=== PATIENT | female | born 1935 | race Caucasian/White ===

== ENCOUNTER 2017-05-17 08:24 | Observation (INO) | payer MEDICARE ==
[~2017-05-17] VITALS: Ht 162.6 cm; Wt 62.3 kg
[2017-05-17 08:21] VITALS: BP 176/83; PULSE 76; RESP 18; O2SAT 97
[~2017-05-17 08:24] MED LIST: BRIM5DRO10 AFFECT_EYE; LAMO25TA2 PO
--- NOTE | 2017-05-17 08:26 | ED.REPORT ---
HPI-Trauma Minor / Fall Date of Service May 17, 2017 ED Provider: 81-year-old female past medical history of neurological deterioration of the right leg presents today for fall. She states that she was at home trying to open a window when she lost her balance and fell back onto her buttocks. She states that she fell into a sitting position, and since that time she describes 8/10 dull pain in her buttocks and low back which radiates up spinal column. Laying in bed alleviates his pain, sitting up aggravates the pain. She states that she has been able to walk since that time, and denies any changes in bowel or bladder function. She also denies headache, shortness of breath, nausea, vomiting, chest pain, pain with urination. She denies pain in her arms, legs or hips. She is not on any blood thinners and does not take any pain medication at home. She has an appointment today scheduled with Dr. Garibay for evaluation of her recent neurological deterioration of the right leg. Nursing Notes Stated Complaint: GROUND LEVEL FALL Chief Complaint: Multiple Trauma/Fall Nursing Notes Reviewed: Yes Allergies: Coded Allergies: Penicillins (Verified Allergy, Severe, RASH, 10/24/16) Scheduled Brimonidine Tartrate (Alphagan P) 5 Ml Drops 1-2 DROP AFFECT_EYE BID Lamotrigine (Lamictal) 25 Mg Tablet 50 MG PO BID General Time Seen by MD: 08:26 Chief Complaint Fall Hx Obtained From: Patient Onset Occurred: Just prior to arrival Symptom Duration: Since onset Caused by: Accidental Severity: Current: Pain level 8 out of 10 Risk Factors IC Bleed Risk Stratification Risk factors reviewed Head CT Imaging RF Statements: Risk factors reviewed Spine Injury Risk Stratificati Risk factors reviewed Bleeding Risk Stratification Risk factors reviewed Past Medical History Past Medical History Notes: PCP: Dr. Hernandes Neurologist: Dr. Irizarry Past Medical History Reports: Hypertension Past Surgical History denies Family History family history of CVA Smoking History Never Smoker Social History Alcohol Use: Denies alcohol use Drug Use: Denies drug use Ambulatory Status Independent Review of Systems Complete sys rev & neg: except as marked. Physical Exam Physical Exam Notes: 4/5 motor weakness on the right lower leg (hip flexion/extension, lower leg flexion/extension, foot dorsiflexion/flexion) 5/5 motor strength in all other muscles tested Patient has a slurring of her speech, and difficulty swallowing Initial Vital Signs Vital Signs (First) Date Time Temp Pulse Resp B/P Pulse Ox O2 Delivery O2 Flow Rate FiO2 05/17/17 08:21 36.7 76 18 176/83 97 Room Air Initial VS: Reviewed, Vital signs abnormal (elevated blood pressure) Head / Eyes: Atraumatic, Normocephalic, PERRL ENT: Mucous membranes moist, Conjunctiva normal, No scleral icterus Respiratory: Breath sounds normal, Clear to auscultation, No respiratory distress Cardiovascular: Regular rate & rhythm, Heart sounds normal, Intact distal pulses Abdomen / GI: Soft, Non-tender, No guarding, No rebound, No distention Extremities: Vascular intact, No swelling, No tenderness Skin: Warm, Dry, No cyanosis Neurologic: Alert, Oriented, Nonfocal Psychiatric: Mood/affect normal, Behavior normal, Normal thought content Right Hip: Negative: Ecchymosis present, Erythema present, Swelling present... , Tenderness present... Left Hip: Negative: Ecchymosis present, Erythema present, Swelling present..., Tenderness present..., Warmth present Right Thigh: Negative: Ecchymosis present, Erythema present, Swelling present..., Tenderness present..., Warmth present Right Knee: Negative: Ecchymosis present, Erythema present, Swelling present... , Tenderness present... Right Leg / Calf: Positive: Swelling present... (very mild swelling of the calf as compared to the left), Negative: Ecchymosis present, Tenderness present... Neurologic: Oriented X3, No sensory deficits, CN II - XII intact, Cerebellar NL , Memory NL Speech: Positive: Slow, Slurred, Negative: Expressive aphasia, Garbled, Receptive aphasia, Stuttering Focal Weakness: Positive: Lower extremity R Gait Abnormality: Positive: Walks with assistance Interpretation & Diagnostics Lab Results Interpretation Result Diagram: 05/17/17 1025 Test 05/17/17 08:48 05/17/17 10:25 Urine Color Yellow (YELLOW) Urine Appearance Hazy (CLEAR,HAZY) Urine pH 6.5 (5.0-8.0) Urine Specific Boss 1.010 (1.003-1.035) Urine Protein Negativemg/dL (NEG,TRACE) Urine Glucose (UA) Negativemg/dL (NEGATIVE) Urine Ketones Negativemg/dL (NEGATIVE) Urine Occult Blood Negative (NEGATIVE) Urine Nitrite Negative (NEGATIVE) Urine Bilirubin Negative (NEGATIVE) Urine Urobilinogen Normalmg/dL (NORMAL) Urine Leukocyte Esterase Negative (NEGATIVE) Urine RBC 0-2/hpf (0-2) Urine WBC 0-5/hpf (0-5) Urine Epithelial Cells Occasional/hpf (NONE-MOD) Urine Crystals None seen (NONE SEEN) Urine Bacteria None/hpf (NONE-FEW) Urine Hyaline Casts None/lpf (NONE) Urine Granular Casts None seen (NONE SEEN) Urine Waxy Casts None seen (NONE SEEN) Urine Red Blood Cell Casts None seen (NONE SEEN) Urine White Blood Cell Casts None seen (NONE SEEN) Urine Mucus None seen (None Seen) Urine Trichomonas None seen (NONE SEEN) Urine Yeast None (NONE SEEN) Urinalysis Comment None Urine Culture Reflexed Not indicated Hold Urine Received (Received) White Blood Count 9.4th/mm3 (3.8-10.1) Red Blood Count 3.92mil/mm3 (3.90-5.20) Hemoglobin 12.9g/dL (12.0-15.6) Hematocrit 37.6% (35.0-46.0) Mean Corpuscular Volume 95.9fL (81-100) Mean Corpuscular Hemoglobin 32.9pg (27.0-35.0) Mean Corpuscular Hemoglobin Concent 34.3% (32.0-37.0) Red Cell Distribution Width 12.6% (12.3-15.4) Platelet Count 166bil/L (150-400) Neutrophils (%) (Auto) 84.2% (40-74) Lymphocytes (%) (Auto) 9.0% (14-46) Monocytes (%) (Auto) 5.1% (4-12) Eosinophils (%) (Auto) 1.0% (0-5) Basophils (%) (Auto) 0.3% (0-3) ECG Interpretation Time: 10:17 Interpreted by: ED physician Normal ECG Interpretation: Normal ECG w/ rate of... (60), Normal rate, Normal sinus rhythm, No acute ischemic changes, Normal QRS, Normal axis, Normal intervals, No change from prior ECGs Re-Eval/Medical Decision Med Decision/Clinical Course NIF: -60 FVC: 2.2 L With the patient's global symptoms are not concerning for systemic pathology as a result of this fall. X-ray shows new L1 compression fracture. These findings were discussed with Dr. Irizarry who is scheduled to see her today. He had scheduled to see her today in order to begin the workup for myasthenia gravis. He would prefer that she be admitted to the hospital today for observation so that the appropriate workup may be done as an inpatient, as opposed to waiting for labs to come back over time. Consultation : Referral / Consult Name: Saurabh Irizarry MD Consulted With: Neurology Call Returned at: 10:00 Surfacing Machine Operator: Will see patient Note: Request to admit the patient for workup and initiation of medication for myasthenia gravis. Recommend starting Mestinon 30 mg orally. Will see patient. Counseled Regarding: Diagnosis, Lab results, Need for admission Discharge & Departure Impression: Primary Impression: Compression fracture Additional Impression: Fall Encounter type: initial encounter Qualified Code: W19.XXXA - Unspecified fall, initial encounter Disposition: ADMITTED TO HOSPITAL Discharge Condition All VS Reviewed: Yes Condition: Stable Referrals: Bhavana Hardin (PCP) Attending Statement Use the social work resources provided. Call 911, call the crisis center, or return to the ER if you feel suicidal or have other concerns. copies to: Saurabh Irizarry MD, Timothy S DO May 17, 2017 08:26 Pranav Dykes DO May 17, 2017 09:06
--- NOTE | 2017-05-17 09:48 | DRSVH ---
PROCEDURE: X-RAY LUMBAR SPINE, 2 OR 3 VIEW INDICATIONS: fall TECHNIQUE: 3 views of the lumbar spine were acquired. COMPARISON: [facility], MR, MR ANGIO RUNOFF, 11/30/2016, 8:41. FINDINGS: Bones: 5 [id number] vertebrae are present. There is moderate rightward curvature of the lumbar spine. There is moderate wedging of L1, new compared to 1.27.17. Multilevel endplate osteophytes and facet hypertrophy are present. There is mild grade 1 retrolisthesis of L3 on L4. No suspicious bony l esions. Soft tissues: Overlying bowel gas pattern is normal. No suspicious soft tissue calcifications. IMPRESSION: 1. New moderate L1 compression fracture. 2. Multilevel degenerative disc and facet disease. Dictated by: Ash Estrada M.D. on 05/17/2017 at 9:44 Approved by: Ash Estrada M.D. on 05/17/2017 at 9:46
--- NOTE | 2017-05-17 09:49 | DRSVH ---
PROCEDURE: X-RAY PELVIS, ONE OR TWO VIEWS ([id number]) INDICATIONS: fall TECHNIQUE: 1 view(s) of the pelvis acquired. COMPARISON: None. FINDINGS: Upper bony pelvis is obscured by bowel gas. Bones: No fractures or dislocations. No suspicious bony lesions. Periarticular osteophyte formatio n and joint space narrowing at the bilateral hip joints is present. Soft tissues: Visualized bowel gas pattern is normal. No suspicious soft tissue calcifications. IMPRESSION: 1. No acute fracture. No osseous lesion. If symptoms and/or clinical suspicion for pathology persist, further assessment with repeat, or advanced imaging (e.g., CT, MRI, or bone scan) may be helpful for further assessment. Dictated by: Ash Estrada M.D. on 05/17/2017 at 9:46 Approved by: Ash Estrada M.D. on 05/17/2017 at 9:47
[2017-05-17] MEDS ORDERED: 0.9% Sodium Chloride 1,000 ML IV ONE (09:58)
[2017-05-17] MEDS ORDERED: Ondansetron 2 mg/mL 2 mL Inj IV PRN (10:00)
[2017-05-17 10:37] LABS: BASOPHILS % (AUTO) 0.3 % (0-3); MONOCYTES % (AUTO) 5.1 % (4-12); Mean Corpuscular Hemoglobin 32.9 pg (27.0-35.0); Mean Corpuscular Volume 95.9 fL (81-100); NEUTROPHILS % (AUTO) 84.2 % (40-74); Platelet Count 166 bil/L (150-400)
[2017-05-17 10:44] LABS: APPEARANCE,URINE HAZY (CLEAR,HAZY); COLOR,URINE YELLOW (YELLOW); OCCULT BLOOD,URINE NEGATIVE (NEGATIVE); PH,URINE 6.5 (5.0-8.0)
[2017-05-17 10:45] LABS: UROBILINOGEN,URINE NORMAL (NORMAL)
[2017-05-17 11:04] LABS: Magnesium 2.1 mg/dL (1.6-2.6)
[2017-05-17] MEDS ORDERED: Ondansetron 2 mg/mL 2 mL Inj IVPUSH PRN ×2 (11:35→12:20)
[2017-05-17] MEDS ORDERED: Alum-Mag Hydrox-Simeth 30 mL Suspension PO PRN ×2 (11:35→12:20)
--- NOTE | 2017-05-17 11:45 | NUR ---
Arrival to [facility] Rm 1025 Pt arrived to [facility] room 1025; A&Ox3, able to VELARDE, low back pain noted with transfer from gerny to bed with sliding. VS taken, BP slightly elevated, SL, RA. Will continue to monitor with frequent rounds.
[2017-05-17 12:03] VITALS: BP 168/81; PULSE 61; RESP 17; O2SAT 99
[2017-05-17] MEDS ORDERED: Polyethylene Glycol (PEG) 17 Gm Powder PO PRN (12:20)
[2017-05-17 14:07] VITALS: PULSE 63
--- NOTE | 2017-05-17 15:01 | NUR ---
Evaluation completed. Please go to "Notes" then click on "Assessments and Notes" (bottom left corner of screen). Then select appropriate discipline tab on top of screen.
--- NOTE | 2017-05-17 15:17 | DRSVH ---
PROCEDURE: X-RAY CHEST ONE VIEW, PORTABLE ([id number]) INDICATIONS: Possible aspiration TECHNIQUE: One view of the chest was acquired. COMPARISON: 02/20/2015 FINDINGS: Surgical changes and devices: None. Lungs and pleura: No pleural effusions or pneumothorax. Lungs are clear. Mediastinum: Mediastinal contours appear normal. Heart size is normal. Aortic calcifications and to rtuosity. Bones and chest wall: No suspicious bony lesions. Overlying soft tissues appear unremarkable. IMPRESSION: No acute cardiopulmonary abnormality Dictated by: Star Wall M.D. on 05/17/2017 at 15:15 Approved by: Star Wall M.D. on 05/17/2017 at 15:15
[2017-05-17 16:25] VITALS: BP 161/78; PULSE 63; RESP 18; O2SAT 96
--- NOTE | 2017-05-17 18:10 | NUR ---
Home Meds in Pharmacy Home medications labeled and walked down to Pharmacy; PO Lamotrigine, Systan and Brimotradine gtts in Pharmacy.
--- NOTE | 2017-05-17 18:55 | NUR ---
Lamictal/Eye gtts Pt concerned about missing doses of Lamictal today and eye gtts for Glaucoma she normally takes daily and states, "I haven't had either for almost 20 hours now." MD Tristen huff paged; awaiting orders.
--- NOTE | 2017-05-17 19:34 | PCM.HPMED ---
Subjective Date of Service May 17, 2017 Primary Provider: Admitting Physician: Skip Dumont MD Primary Care Physician: Bhavana Hardin Attending Physician: Skip Dumont MD Admit Status: From the Emergency Department, Admit to Red Team Chief Complaint: "I fell straight down on my buttocks and I could feel my whole spine" History of Present Illness: The patient is a very pleasant 81-year-old white female with a history of a seizure disorder for many years. Patient saw a neurologist [facility] years ago who tried several different antiepileptic medications and the patient then went to see Dr. Jean in 2012 who also tried several different antiepileptic medications finally settling on Lamictal which appeared to work quite well for the patient. The patient also suffered from vertigo and was sent to [facility] for vestibular therapy. She was informed her that her eyes were part of her problem. Patient was found to have double vision in her left eye and was developing a cataract in her right eye. In November 2016 she developed a right foot drop. Patient states since that time she is developing atrophy in her right lower extremity and progressive weakness which appears to be getting worse and worse over time. Recently her speech has become garbled and she is having trouble swallowing. The patient has been following with Dr. jean and was to follow-up again today to go over test results to see whether or not she had myasthenia gravis. However, this morning she was opening a window and leaning to her left, which has recently been more problematic for her, and then fell straight backwards onto her buttocks. She felt a shooting pain throughout her whole spine. She then described a 8 out of 10 dull pain in her buttocks and low back which radiated up her spinal column. Laying in bed alleviated this pain, sitting up aggravates the pain. Patient states that she has been able to walk since that time and denies any changes in bowel or bladder function. Patient came to [facility] emergency room and was evaluated by Dr. Manoj Arora who contacted neurologist Dr. Jean, and Dr. Jean recommended that the patient be admitted to the hospital under observation for further evaluation and workup. The patient was therefore brought under observation to the hospitalist service for further evaluation and treatment. Dr. jean was consulted for neurological consultation. Review of Systems: General: Patient appears comfortable lying supine in bed and has no fever, chills, diaphoresis or nausea or vomiting. HEENT: Patient has no headache, patient has no diplopia, patient has double vision in her left eye and a cataract in her right eye. Patient has no problems with their ears, nose or throat. Patient does have difficulty swallowing and difficulty speaking. Patient has no known dental problems. Patient has no pharyngitis or history of thrush. Neck: Patient has no stiffness in the neck. Patient has no lymphadenopathy. Patient has no other problems with her neck. Pulmonary: Patient has no shortness of breath, no cough, no expectoration of sputum. Patient has no pleurisy. Patient has no chest pain. Patient has no history of asthma or COPD. Cardiovascular: Patient has no chest pain. Patient has no history of heart murmur. Patient has no palpitations. Patient has no history of myocardial infarction. Patient has no history of coronary artery disease. Gastrointestinal: Patient has no history of hepatitis A, B or C that she knows of. However, she did have "yellow jaundice as a child". Patient has no history of peptic ulcer disease. Patient has no history of gastroesophageal reflux disease. Patient has no history of nausea, vomiting, or diarrhea. Patient has no history of hematemesis, hematochezia, or melena. Patient has no history of colitis. The patient states however that she has "bashful bowels" and only has a BM every third day. Even at that she will have a small bowel movement and then feels like she is not able to completely evacuate her bowels. She has no incontinence of urine or stool. Renal: Patient has no history of kidney disease. No history of kidney stones. Genitourinary: Patient has no history of dysuria, frequency, or incontinence. Patient has no previous history of genitourinary problems. Musculoskeletal: Patient complains of some muscle atrophy of the right lower extremity greater than the left lower extremity. Neurologic: Patient has no history of stroke and no history of TIA. The patient does have a history of seizure activity and has been on Lamictal for seizure activity for years. Psychiatric: Patient has no history of psychiatric problems. The remainder of the entire review of systems was reviewed with patient and is as mentioned above otherwise negative. Allergies Coded Allergies: Penicillins (Verified Allergy, Severe, RASH, 10/24/16) Home Medications Scheduled Brimonidine Tartrate (Alphagan P) 5 Ml Drops 1-2 DROP AFFECT_EYE BID Lamotrigine (Lamictal) 25 Mg Tablet 50 MG PO BID PMH Hypertension Right foot drop Left eye double vision Progressive weakness Dysphagia Dysarthria Surgical History Tonsillectomy Tubal ligation Family History Patient's father at 76 from an autoimmune disorder and stomach upset evolved into aspiration of vomitus and . Patient's mother at 95 after having a cerebrovascular accident at the age of 85 and old age The patient has one younger sister who is healthy as far she knows. Social History Hx Alcohol Use: Yes (She would very, very rarely have a glass of wine or alcoholic beverage) Hx Substance Use: No Hx Tobacco Use: No Smoking Status: Never Smoker Living Arrangement: Alone (The patient lives in a condominium in [place] by herself and has 16 steps to get in and out.) Additional Information The patient was born in [place], [place]. She went to high school in [place], [place]. She then went to one year of college at [employer] in [place]. She then went to one year of college at [employer]. She then attended [employer] for 2 years and obtained a degree in teaching. 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 Patient was for 30 years and for 30 years. She had 6 children she has a son that lives nearby in [place] to [facility] and [facility] in [place] her fourth son of a brain aneurysm 7 years ago at the age of 49. The patient lived in [place] for 50 years and then now moved to [place] in a condo. She has never smoked tobacco or use any illicit drugs. She very, very rarely drank alcohol. Exam Vital Signs Vital Sign - Last Date Time Temp Pulse Resp B/P Pulse Ox O2 Delivery O2 Flow Rate FiO2 05/17/17 16:25 36.7 63 18 161/78 96 Room Air Exam General: Patient is comfortable lying supine in bed however sitting or standing causes pain in his lower back. HEENT: Head is atraumatic and normocephalic. Eyes: Pupils are equally round and reactive to light and accommodation. Extraocular muscles are intact. Sclera are white, anicteric. Subconjunctival mucosa is pink. Ears and nose are unremarkable. Oropharynx: There is no mucosal lesions, there is no thrush, there is no pharyngitis. Neck: Is supple, there are no nodes, or masses or tenderness. Chest: Is clear to auscultation and percussion. There are no rales, rhonchi, wheezes or rubs. Heart: Rate, rhythm is regular. There is a grade 2/6 systolic ejection murmur heard best at the left sternal border. There is no rub or gallop. Abdomen: Good bowel sounds are present. Abdomen is soft, nontender, no organomegaly or masses were appreciated. Extremities: Are well perfused. There is no edema, there is no cellulitis, no rash. There is foot drop on the right and possibly some early atrophy of muscles in the right lower extremity apparent in the knee to below knee area. Neurologic: The patient has garbled speech and difficulty swallowing. She complains of double vision in her left eye. She has generalized weakness. She has right lower extremities foot drop. Possible atrophy of his muscles of her right lower extremity. Otherwise she has generalized weakness. Gait was not tested at this time. Finger to nose and heel to mcnally test were unremarkable. Psychiatric: Patients mood is calm and she shows no sign of agitation. Genital: Deferred Rectal: Deferred Lab and Diagnostics Result Diagram: 05/17/17 1025 05/17/17 1025 Assessment & Plan The patient is a very pleasant 81-year-old white female with a history of a seizure disorder for many years. Patient saw a neurologist [facility] years ago who tried several different antiepileptic medications and the patient then went to see Dr. Jean in 2012 who also tried several different antiepileptic medications finally settling on Lamictal which appeared to work quite well for the patient. The patient also suffered from vertigo and was sent to [facility] for vestibular therapy. She was informed her that her eyes were part of her problem. Patient was found to have double vision in her left eye and was developing a cataract in her right eye. In November 2016 she developed a right foot drop. Patient states since that time she is developing atrophy in her right lower extremity and progressive weakness which appears to be getting worse and worse over time. Recently her speech has become garbled and she is having trouble swallowing. The patient has been following with Dr. jean and was to follow-up again today to go over test results to see whether or not she had myasthenia gravis. However, this morning she was opening a window and leaning to her left, which has recently been more problematic for her, and then fell straight backwards onto her buttocks. She felt a shooting pain throughout her whole spine. She then described a 8 out of 10 dull pain in her buttocks and low back which radiated up her spinal column. Laying in bed alleviated this pain, sitting up aggravates the pain. Patient states that she has been able to walk since that time and denies any changes in bowel or bladder function. Patient came to [facility] emergency room and was evaluated by Dr. Manoj Arora who contacted neurologist Dr. Jean, and Dr. Jean recommended that the patient be admitted to the hospital under observation for further evaluation and workup. The patient was therefore brought under observation to the hospitalist service for further evaluation and treatment. Dr. Jean was consulted for neurological consultation. 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 Active - Patient has double vision in the left eye - Patient has right lower extremity foot drop - Patient has dysphasia - Patient has dysarthria - Patient has progressive weakness - Patient has loss of balance especially when moving to the left. Patient lost her balance today moving to the left to open or close a window and fell backwards on her buttocks resulting in an L1 vertebral spine compression fracture. - Dr. Jean has been consulted for neurology evaluation and consultation. # Low back pain after fall from ground level today - X-rays are consistent with L1 vertebral spine compression fracture - Pain secondary to above # History of hypertension - Patient states that it is reactive and she is not on any long-term antihypertensive medications. - Continue to closely monitor. # History of seizure disorder - Continue Lamictal as at home. - Monitor closely Disposition: Patient was admitted under observation. Will await 's evaluation and recommendations. Pain Evaluation: Adequate Pain Control GI Prophylaxis: Not indicated VTE Prophylaxis: Sub-Q Enoxaparin Resuscitation Status: CPR: Attempt Resuscitation Skip Dumont MD May 17, 2017 19:34
[2017-05-17 19:43] VITALS: BP 142/77; PULSE 70; RESP 18; O2SAT 97
--- NOTE | 2017-05-17 20:12 | PCM.CHPMED ---
Subjective Date of Service: May 17, 2017 (NEUROLOGY CONSULTATION. Attending physician: Dr. Saurabh Irizarry. Resident physician: Dr. 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 She states that it typically takes her awhile to get going in the morning and she was in her bedroom when she fell backwards onto her bottom around 7am. She denies feeling lightheaded or dizzy and states that she was a little off balance. She reports landing on her tailbone after which she states she immediately felt pain in her low back that radiated up her spine. Her back pain is worse with movement, particularly sitting up in bed and relieved when lying flat. She states that she was able to roll onto her side after and ambulate with a walker to call 911. She denies loss of consciousness, dizziness, headache , loss of bladder or bowel function, numbness or tingling in her extremities, shortness of breath, chest pain or palpitations. She reports increasing difficulty swallowing, slurred speech, generalized fatigue, and weakness in her right leg as well as bilateral upper extremities. Of note, she was scheduled for an office visit at the Neurology clinic today at 11am to discuss recent imaging studies and workup for myasthenia gravis. She was seen by Neurology on for peroneal neuropathy and new onset of intermittent dysarthria and dysphagia with occasional choking episodes. At that time she denied ocular symptoms commonly seen in the setting of myasthenia such as ptosis and diploplia. However, states that she was told in December that she does not have vertigo after an evaluation at [facility] and her symptoms attributed to diplopia. She denies recent changes in vision but notes that she has been seeing double for quite some time and that this worsens when she is tired. She reports ongoing gait disturbance related to her right foot, increasing fatigue throughout the day and that her leg feels heavy at times. A nerve conduction study on 02/14/17 was consistent with right-sided common peroneal mononeuropathy at the fibular neck. However, this showed evidence of remyelination and was improved from prior study just three months earlier. A brain MRI on on 04/18/17 to rule out the possibility of stroke showed no acute process, mild volume loss and small vessel ischemic disease, no recent infarct. Review of Systems: Constitutional: Reports: Weakness, Denies: Chills, Fever Eyes: Denies: Conjunctive Inflammation, Pain ENT: Reports: Dysphagia, Denies: Tinnitus Neck: Denies: Pain, Swelling Cardiovascular: Denies: Chest Pain, Edema, Palpitations Respiratory: Denies: Shortness of Breath Gastrointestinal: Denies: Nausea, Vomiting Genitourinary: Denies: Dysuria, Hematuria Musculoskeletal: Reports: Back Pain, Weakness Skin: Denies: Bruising, Rash Neurological: Reports: Change in Speech (hx of dysarhtria, no acute change), Double Vision (chronic), Localized Weakness, Denies: Confusion, Dizziness Endocrine: Denies: Diaphoresis PMH Past Medical History Chronic temporal seizure disorder Hypertension Hyperlipidemia Osteopenia Comminuted left distal intra-articular fracture of radius with shortening Glaucoma Insomnia Right thyroid nodule Vertigo Right foot drop Hx Diabetes: No Surgical History Bilateral tubal ligation ORIF left radial fracture Tonsillectomy Home Medications Brimonidine Tartrate (Alphagan P) 5 Ml Drops 1-2 DROP AFFECT_EYE BID Lamotrigine (Lamictal) 25 Mg Tablet 50 MG PO BID Allergies: Coded Allergies: Penicillins (Verified Allergy, Severe, RASH, 10/24/16) Family History Family History Mother- age 95, HTN, CVA, cerebral hemorrhage Son- brain aneurysm and CVA at age 42 Social History Hx Alcohol Use: NoHx Substance Use: NoHx Tobacco Use: No Smoking Status: Never Smoker Living Arrangement: Alone Exam Vital Signs Vital Sign - Last Date Time Temp Pulse Resp B/P Pulse Ox O2 Delivery O2 Flow Rate FiO2 05/17/17 08:21 36.7 76 18 176/83 97 Room Air Additional Information: General physical exam: Constitutional: Well developed elderly female alert, oriented and in no acute distress. Speech is fluent with notable dysphonia, comprehension intact. HEENT: Normocephalic, atraumatic. Pupils are equal, round and reactive to light. Mucous membranes are moist. Neck supple with full range of motion without lymphadenopathy or thyromegaly. Cardiovascular: Regular rate and rhythm with no murmurs, rubs, or gallops appreciated Pulmonary: Clear to auscultation bilaterally. Normal respiratory effort with no use of accessory muscles Skin: Warm and dry. No rash, ulcerations or subcutaneous nodules appreciated. Psychiatric: Normal mood and affect. Good judgment and insight. Neurologic examination: Mental status: The patient is alert, attentive, and oriented. Speech is fluent but notable for dysphonia. No signs of cognitive impairment. Cranial nerves: CN II: Pupils equal, round, and reactive to light and accommodation. CN III, IV, : At primary gaze, there is no eye deviation or ptosis. She denies worsening of diplopia in all directions of gaze but diplopia resolves when right eye covered. CN V: Facial sensation is intact CN VII: Face is symmetric with normal eye closure and smile. CN VII: Hearing is normal to rubbing fingers CN IX, X: Palate elevates symmetrically with moderate dysphonia noted CN XI: Head turning and shoulder shrug are intact CN XII: Tongue is midline with normal movements and no atrophy. Motor: There is no pronator drift of out-stretched arms. Muscle bulk and tone are normal. Strength is 3+/5 upper extremities bilaterally and 4/5 left lower extermity. Right lower extremity 3/5 proximally, 1/5 with ankle flexion. Sensory: Light touch and temperature intact bilateral upper/lower extremities. Coordination: There is no dysmetria on [id number] or [id number]-[id number] on the left. Unable to assess on the right due to foot drop. Romberg not performed as patient unable to get out of bed secondary to pain associated with L1 compression fracture. Gait/Stance: Deferred until patient's strength and mobility improve. Lab and Diagnostics Labs Laboratory Tests Test 05/17/17 08:48 05/17/17 10:25 Urine Color Yellow (YELLOW) Urine Appearance Hazy (CLEAR,HAZY) Urine pH 6.5 (5.0-8.0) Urine Specific [place] 1.010 (1.003-1.035) Urine Protein Negativemg/dL (NEG,TRACE) Urine Glucose (UA) Negativemg/dL (NEGATIVE) Urine Ketones Negativemg/dL (NEGATIVE) Urine Occult Blood Negative (NEGATIVE) Urine Nitrite Negative (NEGATIVE) Urine Bilirubin Negative (NEGATIVE) Urine Urobilinogen Normalmg/dL (NORMAL) Urine Leukocyte Esterase Negative (NEGATIVE) Urine RBC 0-2/hpf (0-2) Urine WBC 0-5/hpf (0-5) Urine Epithelial Cells Occasional/hpf (NONE-MOD) Urine Crystals None seen (NONE SEEN) Urine Bacteria None/hpf (NONE-FEW) Urine Hyaline Casts None/lpf (NONE) Urine Granular Casts None seen (NONE SEEN) Urine Waxy Casts None seen (NONE SEEN) Urine Red Blood Cell Casts None seen (NONE SEEN) Urine White Blood Cell Casts None seen (NONE SEEN) Urine Mucus None seen (None Seen) Urine Trichomonas None seen (NONE SEEN) Urine Yeast None (NONE SEEN) Urinalysis Comment None Urine Culture Reflexed Not indicated Hold Urine Received (Received) White Blood Count 9.4th/mm3 (3.8-10.1) Red Blood Count 3.92mil/mm3 (3.90-5.20) Hemoglobin 12.9g/dL (12.0-15.6) Hematocrit 37.6% (35.0-46.0) Mean Corpuscular Volume 95.9fL (81-100) Mean Corpuscular Hemoglobin 32.9pg (27.0-35.0) Mean Corpuscular Hemoglobin Concent 34.3% (32.0-37.0) Red Cell Distribution Width 12.6% (12.3-15.4) Platelet Count 166bil/L (150-400) Neutrophils (%) (Auto) 84.2% (40-74) Lymphocytes (%) (Auto) 9.0% (14-46) Monocytes (%) (Auto) 5.1% (4-12) Eosinophils (%) (Auto) 1.0% (0-5) Basophils (%) (Auto) 0.3% (0-3) Sodium Level 138mEq/L (134-144) Potassium Level 4.1mEq/L (3.5-5.2) Chloride Level 100mEq/L (97-108) Carbon Dioxide Level 24mmol/L (18-29) Blood Urea Nitrogen 12mg/dL (8-27) Creatinine 0.65mg/dL (0.57-1.00) Estimat Glomerular Filtration Rate 126mL/min (>59) Glucose Level 99mg/dL (60-99) Calcium Level 9.9mg/dL (8.5-10.1) Magnesium Level 2.1mg/dL (1.6-2.6) Total Bilirubin 0.6mg/dL (0.0-1.2) Aspartate Amino Transf (AST/SGOT) 39U/L (0-50) Alanine Aminotransferase (ALT/SGPT) 36U/L (0-32) Alkaline Phosphatase 71U/L (25-165) Total Protein 7.4g/dL (6.4-8.4) Albumin 4.3g/dL (3.4-5.0) Result Diagram: 05/17/17 1025 05/17/17 1025 X-Rays, CTs and MRIs (05/17/17) X-RAY PELVIS, ONE OR TWO VIEWS IMPRESSION: 1. No acute fracture. No osseous lesion. If symptoms and/or clinical suspicion for pathology persist, further assessment with repeat, or advanced imaging (e.g. , CT, MRI, or bone scan) may be helpful for further assessment. Dictated and approved by: Ash Estrada M.D. on 05/17/2017 at 9:46 (05/17/17) X-RAY LUMBAR SPINE, 2 OR 3 VIEW IMPRESSION: 1. New moderate L1 compression fracture. 2. Multilevel degenerative disc and facet disease. Dictated and approved by: Ash Estrada M.D. on 05/17/2017 at 9:44 12-lead ECG ECG normal sinus rhythm with rate in 60s, no acute ischemic changes and prior to prior ECGs. Assessment & Plan Assessment 81-year-old woman with a history of chronic temporal seizure disorder, hypertension, hyperlipidemia, right lower extremity mononeuropathy with associated foot drop, and possible Myasthenia gravis who presented with back pain after a ground level fall. The patient's outpatient workup of multiple neurologic symptoms is ongoing. Due to gait disturbances, imbalance and right peroneal mononeuropathy with foot drop therapy has included an emphasis of Physical therapy and fall prevention. Given the rather rapid onset of her symptoms including diplopia, dysphonia, dysphagia and increasing weakness with generalized fatigue Myasthenia gravis remains a likely diagnosis. However, other potential causes such as a paraneoplastic process or motor neuron disease cannot be excluded. Additionally, patients with rapidly increasing generalized weakness secondary to an exacerbation of myasthenia gravis can develop respiratory distress quite rapidly as the usual signs of respiratory distress are often masked due to weakness. Although this appears less likely at this point with a NIF of -60 cmH20 it is certainly reasonable given her current living situation to admit the patient for observation and initiate an empiric trial of Mestinon. Patient will likely need short term placement in a [facility] as she currently lives alone and is now with acute L1 compression fracture which further limits her mobility. Brain MRI on 04/18/17 to exclude to possibility of stroke was negative for recent infarct or acute process. However, MR Angiogram showed reduced flow within the distal right vertebral artery but this was not well seen. Recommendations: -Empiric trial of Mestinon (pyridostigmine), 30mg Q8h with gradual titration based on symptomatic response. -Myasthenia gravis antibody panel -Close observation for possible neurologic worsening or respiratory distress. -CT angiogram head/neck to further evaluate nonspecific abnormalities on recent MR angiogram. -Paraneoplastic panel to asses for occult malignant process -Physical therapy/Speech therapy -Outpatient CT chest pending results of antibody testing to exclude thymoma. Problems: Pain Evaluation: Adequate Pain Control GI Prophylaxis: Not indicated Resuscitation Status: CPR: Attempt Resuscitation Dalia Delarosa DO May 17, 2017 11:37 Dalia Delarosa DO May 17, 2017 11:37 Dalia Delarosa DO May 17, 2017 11:37
[2017-05-17] MEDS: lamoTRIgine 25 mg Tablet PO SCH (21:55)
[2017-05-17] MEDS: Brimonidine 0.2% 5 mL Ophthalmic Solution BOTH_EYES SCH (21:56)
[2017-05-18] VITALS (8 sets, daily range): BP systolic 127–166; BP diastolic 56–84; PULSE 54–73; RESP 16–18; O2SAT 93–98
[2017-05-18 06:26] LABS: BASOPHILS % (AUTO) 0.9 % (0-3); EOSINOPHILS % (AUTO) 1.9 % (0-5); MONOCYTES % (AUTO) 7.1 % (4-12); Mean Corpuscular Hemoglobin 32.6 pg (27.0-35.0); Mean Corpuscular Volume 97.2 fL (81-100); NEUTROPHILS % (AUTO) 72.2 % (40-74); Platelet Count 151 bil/L (150-400)
[2017-05-18 06:46] LABS: Magnesium 1.9 mg/dL (1.6-2.6)
--- NOTE | 2017-05-18 07:43 | NUR ---
Activity Patient attempted bedpan throughout early evening, requested to use BSC. This RN and aide assisted with pivoting to BSC. This Rn stayed with patient entire time and then assisted her back into bed with assisstance from an aide. Patient was unsuccessful in having a bowel movement voiced desire to try again in morning. Also states that she feels "Stronger" early in the day and tires as the day progresses.
--- NOTE | 2017-05-18 09:00 | PCM.PNMED ---
Subjective Date of Service May 18, 2017 NEUROLOGY PROGRESS NOTE Attending physician: Saurabh Irizarry M.D. Resident physician: Dalia Delarosa D.O. . Subjective Patient is resting comfortably this morning with no acute events overnight. She reports pain in her low back which is tolerable and responding well to acetaminophen. Additionally she notes some constipation and limited sleep due to interruptions. She otherwise denies any significant change in her symptoms. She denies difficulty breathing, headache, numbness or tingling in her extremities, nausea or vomiting. Exam Vital Signs Vital Sign - Last Date Time Temp Pulse Resp B/P Pulse Ox O2 Delivery O2 Flow Rate FiO2 05/18/17 07:42 36.8 54 18 132/74 97 Room Air Intake and Output 05/17/17 05/17/17 05/18/17 Cumulative From/Thru 15:00 23:00 07:00 05/17/17 08:21 - 05/17/17 23:45 Intake Total 1000 ml 200 ml 1200 ml Output Total 1750 ml 1750 ml Balance 1000 ml -1550 ml -550 ml Intake Oral 200 ml 200 ml IV Total 1000 ml 1000 ml Output Urine Total 1750 ml 1750 ml Exam General physical exam: Constitutional: Well developed elderly female alert, oriented and in no acute distress. Speech is fluent with notable dysphonia, comprehension intact. HEENT: Normocephalic, atraumatic. Pupils are equal, round and reactive to light. Mucous membranes are moist. Cardiovascular: Regular rate and rhythm with systolic murmur heard best left sternal border, no rubs, or gallops appreciated Pulmonary: Clear to auscultation bilaterally. Normal respiratory effort with no use of accessory muscles Skin: Warm and dry. No rash, ulcerations or subcutaneous nodules appreciated. Psychiatric: Normal mood and affect. Good judgment and insight. Neurologic examination: Mental status: The patient is alert, attentive, and oriented. Speech is fluent but notable for dysphonia. No signs of cognitive impairment. Cranial nerves: CN II: Pupils equal, round, and reactive to light and accommodation. CN III, IV, : At primary gaze, there is no eye deviation or ptosis. Diplopia with all extremes of gaze CN V: Facial sensation is intact CN VII: Face is symmetric with normal eye closure and smile. CN VII: Hearing is normal to rubbing fingers CN IX, X: Palate elevates symmetrically with moderate dysphonia noted CN XI: Head turning and shoulder shrug are intact CN XII: Tongue is midline with normal movements and no atrophy. Motor: There is no pronator drift of out-stretched arms. Muscle bulk and tone are normal. Strength is 3+/5 upper extremities bilaterally and 4/5 left lower extermity. Right lower extremity 3/5 proximally, 1/5 with ankle flexion. Sensory: Light touch and temperature intact bilateral upper/lower extremities. Coordination: There is no dysmetria on cnitmz-ya-rppi or cvql-pxqq-bvym on the left. Unable to assess on the right due to foot drop. Romberg not performed as patient unable to get out of bed secondary to pain associated with L1 compression fracture. Gait/Stance: Deferred until patient's strength and mobility improve. IVs and Medications Medications Reviewed: Medications were reviewed in detail Lab and Diagnostics Laboratory Tests Test 05/17/17 08:48 05/17/17 10:25 05/18/17 05:48 Urine Color Yellow (YELLOW) Urine Appearance Hazy (CLEAR,HAZY) Urine pH 6.5 (5.0-8.0) Urine Specific [place] 1.010 (1.003-1.035) Urine Protein Negativemg/dL (NEG,TRACE) Urine Glucose (UA) Negativemg/dL (NEGATIVE) Urine Ketones Negativemg/dL (NEGATIVE) Urine Occult Blood Negative (NEGATIVE) Urine Nitrite Negative (NEGATIVE) Urine Bilirubin Negative (NEGATIVE) Urine Urobilinogen Normalmg/dL (NORMAL) Urine Leukocyte Esterase Negative (NEGATIVE) Urine RBC 0-2/hpf (0-2) Urine WBC 0-5/hpf (0-5) Urine Epithelial Cells Occasional/hpf (NONE-MOD) Urine Crystals None seen (NONE SEEN) Urine Bacteria None/hpf (NONE-FEW) Urine Hyaline Casts None/lpf (NONE) Urine Granular Casts None seen (NONE SEEN) Urine Waxy Casts None seen (NONE SEEN) Urine Red Blood Cell Casts None seen (NONE SEEN) Urine White Blood Cell Casts None seen (NONE SEEN) Urine Mucus None seen (None Seen) Urine Trichomonas None seen (NONE SEEN) Urine Yeast None (NONE SEEN) Urinalysis Comment None Urine Culture Reflexed Not indicated Hold Urine Received (Received) White Blood Count 9.4th/mm3 (3.8-10.1) 5.7th/mm3 (3.8-10.1) Red Blood Count 3.92mil/mm3 (3.90-5.20) 3.59mil/mm3 (3.90-5.20) Hemoglobin 12.9g/dL (12.0-15.6) 11.7g/dL (12.0-15.6) Hematocrit 37.6% (35.0-46.0) 34.9% (35.0-46.0) Mean Corpuscular Volume 95.9fL (81-100) 97.2fL (81-100) Mean Corpuscular Hemoglobin 32.9pg (27.0-35.0) 32.6pg (27.0-35.0) Mean Corpuscular Hemoglobin Concent 34.3% (32.0-37.0) 33.5% (32.0-37.0) Red Cell Distribution Width 12.6% (12.3-15.4) 12.6% (12.3-15.4) Platelet Count 166bil/L (150-400) 151bil/L (150-400) Neutrophils (%) (Auto) 84.2% (40-74) 72.2% (40-74) Lymphocytes (%) (Auto) 9.0% (14-46) 17.7% (14-46) Monocytes (%) (Auto) 5.1% (4-12) 7.1% (4-12) Eosinophils (%) (Auto) 1.0% (0-5) 1.9% (0-5) Basophils (%) (Auto) 0.3% (0-3) 0.9% (0-3) Sodium Level 138mEq/L (134-144) 140mEq/L (134-144) Potassium Level 4.1mEq/L (3.5-5.2) 4.0mEq/L (3.5-5.2) Chloride Level 100mEq/L (97-108) 101mEq/L (97-108) Carbon Dioxide Level 24mmol/L (18-29) 25mmol/L (18-29) Blood Urea Nitrogen 12mg/dL (8-27) 13mg/dL (8-27) Creatinine 0.65mg/dL (0.57-1.00) 0.62mg/dL (0.57-1.00) Estimat Glomerular Filtration Rate 126mL/min (>59) 133mL/min (>59) Glucose Level 99mg/dL (60-99) 107mg/dL (60-99) Calcium Level 9.9mg/dL (8.5-10.1) 9.2mg/dL (8.5-10.1) Magnesium Level 2.1mg/dL (1.6-2.6) 1.9mg/dL (1.6-2.6) Total Bilirubin 0.6mg/dL (0.0-1.2) 0.7mg/dL (0.0-1.2) Aspartate Amino Transf (AST/SGOT) 39U/L (0-50) 36U/L (0-50) Alanine Aminotransferase (ALT/SGPT) 36U/L (0-32) 30U/L (0-32) Alkaline Phosphatase 71U/L (25-165) 69U/L (25-165) Total Protein 7.4g/dL (6.4-8.4) 6.2g/dL (6.4-8.4) Albumin 4.3g/dL (3.4-5.0) 3.9g/dL (3.4-5.0) Result Diagram: 05/18/17 0548 05/18/17 0548 X-Rays, CTs and MRIs (05/17/17) X-RAY PELVIS, ONE OR TWO VIEWS IMPRESSION: 1. No acute fracture. No osseous lesion. If symptoms and/or clinical suspicion for pathology persist, further assessment with repeat, or advanced imaging (e.g. , CT, MRI, or bone scan) may be helpful for further assessment. Dictated and approved by: Ash Estrada M.D. on 05/17/2017 at 9:46 (05/17/17) X-RAY LUMBAR SPINE, 2 OR 3 VIEW IMPRESSION: 1. New moderate L1 compression fracture. 2. Multilevel degenerative disc and facet disease. Dictated and approved by: Ash Estrada M.D. on 05/17/2017 at 9:44 (05/17/17) X-RAY CHEST ONE VIEW, PORTABLE IMPRESSION: No acute cardiopulmonary abnormality Dictated and approved by: Star Wall M.D. on 05/17/2017 at 15:15 Assessment & Plan 81-year-old woman with a history of chronic temporal seizure disorder, hypertension, hyperlipidemia, and right lower extremity mononeuropathy with associated foot drop who presented with back pain after a ground level fall. The patient's outpatient workup of multiple neurologic symptoms is ongoing. Given the rather rapid onset of her symptoms including diplopia, dysphonia, dysphagia and increasing weakness with generalized fatigue Myasthenia gravis remains a likely diagnosis. Patient admitted for observation and further evaluation of myasthenia gravis with initiation of an empiric trial of Mestinon. She is tolerating the Mestinon and dysphonia as well as dysarthria appears to have improved somewhat. Recommendations: -Increase Mestinon (pyridostigmine) to 60mg TID with gradual titration based on symptomatic response. -Myasthenia gravis antibody and paraneoplastic panel are still pending. -Continue close observation for possible neurologic worsening or respiratory distress. -CT angiogram head/neck to further evaluate nonspecific abnormalities on recent MR angiogram planned for this morning. -Physical therapy/Speech therapy; patient will likely need [facility] stay in [facility] due to ongoing weakness, multiple ground level falls and further decrease in mobility secondary to acute L1 compression fracture. -Outpatient CT chest pending results of antibody testing to exclude thymoma. -Continue home dose Lamictal Additional problems management per Hospitalist: -L1 vertebral spine compression fracture -History of hypertension, hyperlipidemia Pain Evaluation: Adequate Pain Control GI Prophylaxis: Not indicated VTE Prophylaxis: Sub-Q Enoxaparin Resuscitation Status: CPR: Attempt Resuscitation Dalia Delarosa DO May 18, 2017 08:04
[2017-05-18] MEDS: Brimonidine 0.2% 5 mL Ophthalmic Solution BOTH_EYES SCH ×2 (09:24→20:34)
[2017-05-18] MEDS: lamoTRIgine 25 mg Tablet PO SCH ×2 (09:25→20:34)
--- NOTE | 2017-05-18 12:08 | NUR ---
Evaluation completed. Please go to "Notes" then click on "Assessments and Notes" (bottom left corner of screen). Then select appropriate discipline tab on top of screen.
--- NOTE | 2017-05-18 14:58 | DRSVH ---
PROCEDURE: CT ANGIO HEAD AND NECK (P) INDICATIONS: r/o stenosis History of Abnormal MRI Brain TECHNIQUE: Pre-contrast 4.5 mm thick sections acquired from the foramen magnum to the vertex. After the adminis tration of intravenous contrast, 1 mm thick sections acquired from the aortic arch through the [place]. Post-contrast 4.5 mm thick sections then re-acquired from the foramen magnum to the vert ex. 3-dimensional wkihnjn-kwqdfwutp-decozqutcf (MIP) and/or volume rendering reformats were acquired of the central intracranial vasculature and neck separately. For radiation dose reduction, the foll owing was used: automated exposure control, adjustment of mA and/or kV according to patient size. COMPARISON: [facility], MRI from 04/18/2017. FINDINGS: Image quality: Excellent. BRAIN: CSF spaces: Ventricles are normal in size and shape. Basal cisterns are patent. No extra-axial flu id collections. Brain: No midline shift. No intracranial bleeds or masses. Pepper-white matter interface appears int act. Skull and face: Calvarium and facial bones appear intact, without suspicious lesions. Orbits appear normal. Sinuses: Sinuses and mastoids are clear. HEAD CT ANGIOGRAPHY: Anterior circulation: Intracranial internal carotid arteries are normal in size and flow. The flow within the paired anterior cerebral arteries is normal and symmetric. The flow within the middle cer ebral arteries is normal and symmetric. The anterior communicating artery is seen. No aneurysms are seen. Posterior circulation: The distal right vertebral artery is atrophic and the left is enlarged. Both a re patent. There is a normal appearing basilar artery. An atrophic right posterior commuting artery is present. No definite left posterior commuting artery is identified. Flow within the posterior cere bral arteries is normal and symmetric. No aneurysms are seen. NECK CT ANGIOGRAPHY: Carotid system: The great vessels demonstrate conventional anatomy as they arise from the aortic arc h. Stenosis in the proximal left subclavian artery ( se 13 im 46) with residual lumen measuring 6 x 4 mm (area of 75 mm sq) compared with the aggregate size of the vessel measuring 9 x 8 mm (area of 226 mm sq)( measured on se 13 im 45). Otherwise the subclavian arteries are patent. Right brachiocephali c and left common carotid origin origins are patent. There is hemodynamically insignificant calcified plaque in both carotid bulbs. Otherwise the common and internal carotid arteries are patent. Both ex ternal carotid arteries are patent. Posterior circulation: The right vertebral artery is absent proximally. It reconstitutes at the C5 l evel although it remains very diminutive. The left vertebral artery is patent and larger than typical ly seen. They join to form a normal appearing basilar artery. Soft tissues: There is a 1.1 cm left thyroid nodule. Dense biapical partially calcified pulmonary sc arring.. Bones: No suspicious bony lesions. Visualized cervical spine appears normally aligned. IMPRESSION: 1. 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 Please correlate for any clinical evidence of subclavian steal syndrome. 2. The proximal right vertebral artery is absent and the distal right vertebral artery is markedly at rophic most likely representing a congenital finding. The sequelae of previous dissection is less lik zane but possible. The left vertebral artery is enlarged and widely patent. 3. Common and internal carotid arteries are patent. 4. Normal intracranial arterial structures. Dictated by: Jose A Nunez M.D. on 05/18/2017 at 14:29 Approved by: Jose A Nunez M.D. on 05/18/2017 at 14:56
--- NOTE | 2017-05-18 15:01 | NUR ---
Gave access and faxed facesheet to [facility] and Bobby per FIRE CONTROL TECHNICIAN B and MD order
--- NOTE | 2017-05-18 15:07 | NUR ---
Social Work- Initial Assessment/Multi-Disciplinary Rounds Data:See Initial Assessment. Pt is a 81 year old female admitted under observation for Myasthenia Gravis per H&P. Pt's insurance is [facility]. Pt's PCP is FRANCISCO JAVIER Gordillo. Pt's readmit risk scores is 1. Pt's DPOA is Katja Gamez, . Per multi-disciplinary rounds, pt is followed by Neurology. PT and ST are going to see patient. PT saw patient today and is recommending SNF. SW was approached by Neuro MD regarding SNF placement for daily PT/OT and ST. SW received order for SNF. SW met with pt and son Yamil at bedside regarding discharge plan, SW role explained. Pt alert and oriented x3. Pt's capacity for self-care was assessed. Pt resides in [place], alone in a condo with 12 steps to enter. Pt has been independent until November when she began becoming more debilitated and started requiring a cane and then a walker. Pt continues to drive. Pt has no HH history and no SNF history. Pt has no LTC or VA benefits. Pt's designated discharge planning contact and DPOA is Katja Gamez, daughter, . SW discussed SNF recommendation. Pt is agreeable because Neurology is changing her medication to increase her strength and then pt will be able to return home. SNF CHOICE LIST PROVIDED. Pt chose [facility] as first choice and [facility] as second but [facility] does not accept [facility]. [facility] made referral to [facility] SW discussed that pt is eligible for SNF under observation because she has [facility] and she will require an insurance authorization. If this authorization is not obtained, then pt will have to pay out of pocket to go to SNF. SW will continue to follow. Assessment: Pt for whom SNF is medically necessary Plan: Pt anticipated to discharge to SNF, pending acceptance at [facility] and insurance authorization. Paperwork in chart. PASRR in folder. SW will continue to follow. WINSTON Bravo Addendum: 05/18/17 at 1522 by ARLET SANTIAGO Amended: Links added. Addendum: 05/18/17 at 1523 by ARLET SANTIAGO Note incomplete above: Pt provided STORAGE WORKER Discharge Planning Checklist to pt and son at bedside and phone number and plan on whiteboard. Instructed pt to contact STAVE JOINTER with any needs identified in booklet. Tressa Gates, STAVE JOINTER Addendum: 05/18/17 at 1625 by ARLET SANTIAGO Pt has been accepted at [facility] with [facility] to follow pending insurance authorization. Pt and MD notified. Tressa Gates, STAVE JOINTER
--- NOTE | 2017-05-18 17:18 | NUR ---
Activity Up to BSC multiple times with 1-2 person assist and FWW. Ambulated in room with PT. Back pain with sitting. Does not attempt to get OOB alone.
--- NOTE | 2017-05-18 17:22 | DRSVH ---
[facility] [address] [place] [address] Echocardiogram Report Name: KYLE THIBODEAUX LStudy Date : 05/18/2017 Height: 64 in Hospital Exam Location: [facility] Weight: 121 lb Gender: Female BSA: 1.6 m2 : 1935 Age: 81 yrs BP: 132/ 74 mmHg Reason For Study: Murmur Ordering Physician: Tristen Barnesist Performed By: Ariel Pyle Referring Physician: ESHA FRIED Interpretation Summary 1) Normal left ventricular thickness, size, wall motion, and systolic function (EF 65-70%). 2) Grossly, mildly dilated right ventricle with normal function. 3) Dilated right atrium but unable to grade due to suboptimal images of right atrium. 4) Mild to moderate tricuspid regurgitation. 5) Compared to the Echo done 03/10/2015, no significant change. Procedure: A two-dimensional transthoracic echocardiogram with color flow and Doppler was performed. Comparison is made with the echocardiogram of 03/10/15. The study quality was technically adequate. Apical 2 could not be obtained from her apical window. Patient was supine. The patient was in normal sinus rhythm during the exam. The heart rate ranged between 58-63 bpm during the study. Left Ventricle: The left ventricle is normal in size. Left ventricular wall thickness is normal. The ejection fraction is estimated to be 65-70%. Left ventricular systolic function is normal. Left ventricular wall motion is normal. Right Ventricle: The right ventricle is mildly dilated. The right ventricular systolic function is normal. Atria: The left atrium grossly appears normal in size. Dilated right atrium but unable to grade due to suboptimal images of right atrium. The interatrial septum is intact with no evidence for an atrial septal defect. Mitral Valve: The mitral valve is normal. There is mild mitral regurgitation. Aortic Valve: The aortic valve is normal in structure and function. There is no aortic valve stenosis. There is trace aortic regurgitation. Tricuspid Valve: The tricuspid valve is normal. There is mild to moderate tricuspid regurgitation. The right ventricular systolic pressure is estimated at 24 mmHg assuming a right atrial pressure of 3 mm Hg. Pulmonic Valve: The pulmonic valve is not well visualized. Great Vessels: The aortic root is normal size. The ascending aorta could not be visualized. The pulmonary artery is not well visualized, but is probably normal size. The IVC is of normal diameter and collapses less than 50% with a sniff. This suggests a right atrial pressure of 8 mm Hg. Pericardium/ Pleura There is no pericardial effusion. There are small-sized bilateral pleural effusions noted. MMode/2D Measurements & Calculations LVIDd: 3.3 cm IVC diam LVOT diam: 2.0 cm LV yañez. diameter/BSA LVIDs: 2.4 cm : 2.1 cm AoV Openin.6 cm(cm/m^2): 2.1 FS: 27.4 % Ao root diam IVSd: 0.91 cm LVPWd: 0.91 cm Ao Arch Diam (Prox Trans): 2.7 cm LV sys. diameter/BSA (cm/m^2): 1.5 Doppler Measurements & Calculations Ao V2 max MV E max quinn MV E/A: 1.0 TR max quinn: 232.2 cm/sec : 117.0 cm/sec : 59.3 cm/sec TR max P.6 mmHg Ao max P.5 mmHgMV A max quinn Ao mean PG : 59.3 cm/sec LVOT Max Quinn : 107.8 cm/sec CARLOS(I,D): 2.7 cm sev ratio: 0.85 MV dec time Ao V2 mean LV V1 max PG CARLOS indexed to BSA : 0.23 sec : 83.6 cm/sec (cm^2/m^2): 1.7 Ao V2 VTI: 25.5 cmLV V1 VTI CARLOS(V,D): 2.9 cm2 : 21.7 cm Reading Physician:05:22 PM
--- NOTE | 2017-05-18 17:33 | NUR ---
Case Management: WILMER explained to patient at 1637, all questions answered. Signed original in chart, copy given to patient. Yareli Rueda RN
--- NOTE | 2017-05-18 19:28 | NUR ---
spiritual care: pt request lengthy conversational visit. pt reflected on interpersonal situation and changes due to medical condition. pt detailed the support her family (5 children) is offering since last dec when she had a surgery. She expressed her pleasure and relief, although also ambiguous feelings of dependency as she deals with fatigue. discussion about scripture and sherry. prayer.
--- NOTE | 2017-05-18 23:13 | PCM.PNMED ---
Subjective Date of Service May 18, 2017 Subjective The patient has no new complaints. She thinks she might be feeling a little bit better but it is hard to tell. Exam Vital Signs Vital Sign - Last Date Time Temp Pulse Resp B/P Pulse Ox O2 Delivery O2 Flow Rate FiO2 05/18/17 20:00 36.4 65 16 137/75 98 Room Air Intake and Output 05/17/17 05/17/17 05/18/17 Cumulative From/Thru 15:00 23:00 07:00 05/17/17 08:21 - 05/17/17 23:45 Intake Total 1000 ml 200 ml 1200 ml Output Total 1750 ml 1750 ml Balance 1000 ml -1550 ml -550 ml Intake Oral 200 ml 200 ml IV Total 1000 ml 1000 ml Output Urine Total 1750 ml 1750 ml Exam General: Patient is again comfortable lying supine in bed, however sitting or standing causes pain in her lower back. Patient was able to walk around the room today with physical therapy. HEENT: Head is atraumatic and normocephalic. Eyes: Pupils are equally round and reactive to light and accommodation. Extraocular muscles are intact. Sclera are white, anicteric. Subconjunctival mucosa is pink. Ears and nose are unremarkable. Oropharynx: There is no mucosal lesions, there is no thrush, there is no pharyngitis. Neck: Is supple, there are no nodes, or masses or tenderness. Chest: Is clear to auscultation and percussion. There are no rales, rhonchi, wheezes or rubs. Heart: Rate, rhythm is regular. There is a grade 2/6 systolic ejection murmur heard best at the left sternal border. There is no rub or gallop. Abdomen: Good bowel sounds are present. Abdomen is soft, nontender, no organomegaly or masses were appreciated. Extremities: Are well perfused. There is no edema, there is no cellulitis, no rash. There is foot drop on the right and possibly some early atrophy of muscles in the right lower extremity apparent in the knee to below knee area. Neurologic: The patient has garbled speech and difficulty swallowing. She complains of double vision in her left eye. She has generalized weakness. She has right lower extremities foot drop. Possible atrophy of his muscles of her right lower extremity. Otherwise she has generalized weakness. Gait was not tested at this time. Finger to nose and heel to mcnally test were unremarkable. There was no dysmetria. Psychiatric: Patients mood is calm and she shows no sign of agitation. Genital: Deferred Rectal: Deferred Lab and Diagnostics Result Diagram: 05/18/17 0548 05/18/17 0548 X-Rays, CTs and MRIs (05/17/17) X-RAY PELVIS, ONE OR TWO VIEWS IMPRESSION: 1. No acute fracture. No osseous lesion. If symptoms and/or clinical suspicion for pathology persist, further assessment with repeat, or advanced imaging (e.g. , CT, MRI, or bone scan) may be helpful for further assessment. Dictated and approved by: Ash Estrada M.D. on 05/17/2017 at 9:46 (05/17/17) X-RAY LUMBAR SPINE, 2 OR 3 VIEW IMPRESSION: 1. New moderate L1 compression fracture. 2. Multilevel degenerative disc and facet disease. Dictated and approved by: Ash Estrada M.D. on 05/17/2017 at 9:44 (05/17/17) X-RAY CHEST ONE VIEW, PORTABLE IMPRESSION: No acute cardiopulmonary abnormality Dictated and approved by: Star Wall M.D. on 05/17/2017 at 15:15 PROCEDURE: CT ANGIO HEAD AND NECK (P) INDICATIONS: r/o stenosis History of Abnormal MRI Brain TECHNIQUE: Pre-contrast 4.5 mm thick sections acquired from the foramen magnum to the vertex. After the administration of intravenous contrast, 1 mm thick sections acquired from the aortic arch through the [place]. Post-contrast 4.5 mm thick sections then re-acquired from the foramen magnum to the vertex. 3- dimensional hjyhgwe-bggftwsrc-saucbuahxg (MIP) and/or volume rendering reformats were acquired of the central intracranial vasculature and neck separately. For radiation dose reduction, the following was used: automated exposure control, adjustment of mA and/or kV according to patient size. COMPARISON: [facility], MRI from 04/18/2017. FINDINGS: Image quality: Excellent. BRAIN: CSF spaces: Ventricles are normal in size and shape. Basal cisterns are patent. No extra-axial fluid collections. Brain: No midline shift. No intracranial bleeds or masses. Pepper-white matter interface appears intact. Skull and face: Calvarium and facial bones appear intact, without suspicious lesions. Orbits appear normal. Sinuses: Sinuses and mastoids are clear. HEAD CT ANGIOGRAPHY: Anterior circulation: Intracranial internal carotid arteries are normal in size and flow. The flow within the paired anterior cerebral arteries is normal and symmetric. The flow within the middle cerebral arteries is normal and symmetric. The anterior communicating artery is seen. No aneurysms are seen. Posterior circulation: The distal right vertebral artery is atrophic and the left is enlarged. Both are patent. There is a normal appearing basilar artery. An atrophic right posterior commuting artery is present. No definite left posterior commuting artery is identified. Flow within the posterior cerebral arteries is normal and symmetric. No aneurysms are seen. NECK CT ANGIOGRAPHY: Carotid system: The great vessels demonstrate conventional anatomy as they arise from the aortic arch. Stenosis in the proximal left subclavian artery ( se 13 im 46) with residual lumen measuring 6 x 4 mm (area of 75 mm sq) compared with the aggregate size of the vessel measuring 9 x 8 mm (area of 226 mm sq)( measured on se 13 im 45). Otherwise the subclavian arteries are patent. Right brachiocephalic and left common carotid origin origins are patent. There is hemodynamically insignificant calcified plaque in both carotid bulbs. Otherwise the common and internal carotid arteries are patent. Both external carotid arteries are patent. Posterior circulation: The right vertebral artery is absent proximally. It reconstitutes at the C5 level although it remains very diminutive. The left vertebral artery is patent and larger than typically seen. They join to form a normal appearing basilar artery. Soft tissues: There is a 1.1 cm left thyroid nodule. Dense biapical partially calcified pulmonary scarring.. Bones: No suspicious bony lesions. Visualized cervical spine appears normally aligned. IMPRESSION: 1. 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 Please correlate for any clinical evidence of subclavian steal syndrome. 2. 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 The sequelae of previous dissection is less likely but possible. The left vertebral artery is enlarged and widely patent. 3. Common and internal carotid arteries are patent. 4. Normal intracranial arterial structures. Dictated by: Jose A Nunez M.D. on 05/18/2017 at 14:29 Approved by: Jose A Nunez M.D. on 05/18/2017 at 14:56 Cardiac Echo Impressions Echocardiogram Report Name: KYLE THIBODEAUX Date : 05/18/2017 Height: 64 in Hospital Exam Location: [facility] Weight: 121 lb Gender: Female BSA: 1.6 m2 : 1935 Age: 81 yrs BP: 132/ 74 mmHg Reason For Study: Murmur Ordering Physician: Tristen Velasco Performed By: Ariel Pyle Referring Physician: SKIP DUMONT Interpretation Summary 1) Normal left ventricular thickness, size, wall motion, and systolic function (EF 65-70%). 2) Grossly, mildly dilated right ventricle with normal function. 3) Dilated right atrium but unable to grade due to suboptimal images of right atrium. 4) Mild to moderate tricuspid regurgitation. 5) Compared to the Echo done 03/10/2015, no significant change. Assessment & Plan The patient is a very pleasant 81-year-old white female with a history of a seizure disorder for many years. Patient saw a neurologist [facility] years ago who tried several different antiepileptic medications and the patient then went to see Dr. Jean in 2012 who also tried several different antiepileptic medications finally settling on Lamictal which appeared to work quite well for the patient. The patient also suffered from vertigo and was sent to [facility] for vestibular therapy. She was informed her that her eyes were part of her problem. Patient was found to have double vision in her left eye and was developing a cataract in her right eye. In November 2016 she developed a right foot drop. Patient states since that time she is developing atrophy in her right lower extremity and progressive weakness which appears to be getting worse and worse over time. Recently her speech has become garbled and she is having trouble swallowing. The patient has been following with Dr. jean and was to follow-up again today to go over test results to see whether or not she had myasthenia gravis. However, this morning she was opening a window and leaning to her left, which has recently been more problematic for her, and then fell straight backwards onto her buttocks. She felt a shooting pain throughout her whole spine. She then described a 8 out of 10 dull pain in her buttocks and low back which radiated up her spinal column. Laying in bed alleviated this pain, sitting up aggravates the pain. Patient states that she has been able to walk since that time and denies any changes in bowel or bladder function. Patient came to [facility] emergency room and was evaluated by Dr. Manoj Arora who contacted neurologist Dr. Jean, and Dr. Jean recommended that the patient be admitted to the hospital under observation for further evaluation and workup. The patient was therefore brought under observation to the hospitalist service for further evaluation and treatment. Dr. Jean was consulted for neurological consultation. 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 Active - Patient has double vision in the left eye - Patient has right lower extremity foot drop - Patient has dysphasia - Patient has dysarthria - Patient has progressive weakness - Patient has loss of balance especially when moving to the left. Patient lost her balance today moving to the left to open or close a window and fell backwards on her buttocks resulting in an L1 vertebral spine compression fracture. - Dr. Jean has been consulted for neurology evaluation and consultation. He feels the patient may have myasthenia gravis. Patient is on a trial of Mestinon 60 mg by mouth every 8 hours # Low back pain after fall from ground level today - X-rays are consistent with L1 vertebral spine compression fracture - Pain secondary to above # History of hypertension - Patient states that it is reactive and she is not on any long-term antihypertensive medications. - Continue to closely monitor. # History of seizure disorder - Continue Lamictal as at home. - Monitor closely Disposition: Patient was admitted under observation. Dr. Jean has recommended transfer to a [facility] facility for rehabilitation Pain Evaluation: Adequate Pain Control GI Prophylaxis: Not indicated VTE Prophylaxis: Sub-Q Enoxaparin VTE Mechanical Devices: Intermittant Pneumatic CD Resuscitation Status: CPR: Attempt Resuscitation Skip Dumont MD May 18, 2017 23:13
[2017-05-19 03:22] VITALS: PULSE 60
[2017-05-19 05:45] VITALS: BP 145/80; PULSE 56; RESP 16; O2SAT 96
--- NOTE | 2017-05-19 05:45 | NUR ---
Education Pt. was educated on that her melicon medication had been changed to TID. Pt. was notified of this around 0200. Pt. was also educated on the importance of having properly clean buttocks. Reinforcement needed for education. Pt. had a extra large BM. Will continue to monitor. Addendum: 05/19/17 at 0671 by PEBBLES GAMBLE RN Mestinon not melicon was the medication that education was given on.
[2017-05-19 06:51] LABS: Magnesium 1.9 mg/dL (1.6-2.6)
[2017-05-19] MEDS: Brimonidine 0.2% 5 mL Ophthalmic Solution BOTH_EYES SCH (07:54)
[2017-05-19] MEDS: lamoTRIgine 25 mg Tablet PO SCH (07:55)
[2017-05-19 08:00] VITALS: PULSE 59
[2017-05-19 09:16] VITALS: BP 118/74; PULSE 65; RESP 16; O2SAT 98
--- NOTE | 2017-05-19 10:23 | NUR ---
Called Xiomy Mcguire CM at [facility] [phone] and she is reviewing patient for transfer to [facility]. Updated PRINTER SLOTTER OPERATOR Addendum: 05/19/17 at 1033 by STEVIE DESOUZA CM Xiomy approved patient for transfer, called and updated Radha in admissions at [facility] and let her know we would follow up for transportation needs. Updated PRINTER SLOTTER OPERATOR
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
--- NOTE | 2017-05-19 11:22 | PCM.PNMED ---
Subjective Date of Service May 19, 2017 NEUROLOGY PROGRESS NOTE Attending physician: Saurabh Irizarry M.D. Resident physician: Dalia Delarosa D.O. . Subjective Patient states that other than a lack of sleep she is doing well. She does not appreciate improvement in her voice and is tolerating the Mestinon without significant adverse effect. She states that her vision is about the same but notes a strange feeling in her eyes that she initially thought was a return of vertigo. She states that she sees one and a half instead of two images. Denies eye pain, pressure, dizziness, headache, nausea, vomiting, diarrhea or constipation. Exam Vital Signs Vital Sign - Last Date Time Temp Pulse Resp B/P Pulse Ox O2 Delivery O2 Flow Rate FiO2 05/19/17 09:16 36.6 65 16 118/74 98 Room Air Intake and Output 05/18/17 05/18/17 05/19/17 Cumulative From/Thru 15:00 23:00 07:00 05/17/17 08:21 - 05/19/17 06:53 Intake Total 400 ml 720 ml 450 ml 2770 ml Output Total 750 ml 500 ml 800 ml 3800 ml Balance -350 ml 220 ml -350 ml -1030 ml Intake Oral 400 ml 720 ml 450 ml 1770 ml IV Total 1000 ml Output Urine Total 750 ml 500 ml 800 ml 3800 ml # Voids 1 1 # Bowel Movements 1 1 Exam Constitutional: Well developed elderly female alert, oriented and in no acute distress. Speech is fluent with notable dysphonia, comprehension intact. HEENT: Normocephalic, atraumatic. Pupils are equal, round and reactive to light. Mucous membranes are moist. Cardiovascular: Regular rate and rhythm with systolic murmur heard best left sternal border, no rubs, or gallops appreciated Pulmonary: Clear to auscultation bilaterally. Normal respiratory effort with no use of accessory muscles Skin: Warm and dry. No rash, ulcerations or subcutaneous nodules appreciated. Neurologic: Alert and oriented x3. At primary gaze, there is no eye deviation or ptosis. Diplopia with left horizontal gaze. Face is symmetric with normal eye closure and smile. Motor: There is no pronator drift of out-stretched arms. Muscle bulk and tone are normal. Strength is 3+/5 upper extremities bilaterally and 4/5 left lower extermity. Right lower extremity 3+/5 proximally, 1/5 with ankle flexion. Sensory: Intact bilateral upper/lower extremities.Coordination: no dysmetria on [id number] or [id number] on the left. Unable to assess on the right due to foot drop. Romberg not performed as patient unable to get out of bed secondary to pain associated with L1 compression fracture. Psychiatric: Normal mood and affect. Good judgment and insight. IVs and Medications Medications Reviewed: Medications were reviewed in detail Lab and Diagnostics Laboratory Tests Test 05/19/17 06:05 Sodium Level 139mEq/L (134-144) Potassium Level 4.5mEq/L (3.5-5.2) Chloride Level 103mEq/L (97-108) Carbon Dioxide Level 24mmol/L (18-29) Blood Urea Nitrogen 11mg/dL (8-27) Creatinine 0.63mg/dL (0.57-1.00) Estimat Glomerular Filtration Rate 131mL/min (>59) Glucose Level 104mg/dL (60-99) Calcium Level 9.3mg/dL (8.5-10.1) Magnesium Level 1.9mg/dL (1.6-2.6) Result Diagram: 05/18/17 0548 05/19/17 0605 X-Rays, CTs and MRIs (05/17/17) X-RAY PELVIS, ONE OR TWO VIEWS IMPRESSION: 1. No acute fracture. No osseous lesion. If symptoms and/or clinical suspicion for pathology persist, further assessment with repeat, or advanced imaging (e.g. , CT, MRI, or bone scan) may be helpful for further assessment. Dictated and approved by: Ash Estrada M.D. on 05/17/2017 at 9:46 (05/17/17) X-RAY LUMBAR SPINE, 2 OR 3 VIEW IMPRESSION: 1. New moderate L1 compression fracture. 2. Multilevel degenerative disc and facet disease. Dictated and approved by: Ash Estrada M.D. on 05/17/2017 at 9:44 (05/17/17) X-RAY CHEST ONE VIEW, PORTABLE IMPRESSION: No acute cardiopulmonary abnormality Dictated and approved by: Star Wall M.D. on 05/17/2017 at 15:15 (05/18/17) CT ANGIO HEAD AND NECK (P) IMPRESSION: 1. 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 Please correlate for any clinical evidence of subclavian steal syndrome. 2. 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 The sequelae of previous dissection is less likely but possible. The left vertebral artery is enlarged and widely patent. 3. Common and internal carotid arteries are patent. 4. Normal intracranial arterial structures. Dictated and approved by: Jose A Nunez M.D. on 05/18/2017 at 14:29 . Cardiac Echo Impressions Echocardiogram Report: Interpretation Summary 1) Normal left ventricular thickness, size, wall motion, and systolic function (EF 65-70%). 2) Grossly, mildly dilated right ventricle with normal function. 3) Dilated right atrium but unable to grade due to suboptimal images of right atrium. 4) Mild to moderate tricuspid regurgitation. 5) Compared to the Echo done 03/10/2015, no significant change. . Assessment & Plan 81-year-old woman with a history of chronic temporal seizure disorder, hypertension, hyperlipidemia, and right lower extremity mononeuropathy with associated foot drop who presented with back pain after a ground level fall. Given the rather rapid onset of her symptoms including diplopia, dysphonia, dysphagia and increasing weakness with generalized fatigue Myasthenia gravis remains a likely diagnosis. Patient was admitted for observation and further evaluation of myasthenia gravis with initiation of an empiric trial of Mestinon. She is tolerating the increase in Mestinon and dysphonia as well as diplopia showing signs of improvement. Recommendations: -Continue Mestinon (pyridostigmine) 60mg TID. Will consider increasing based on symptomatic response. -Myasthenia gravis antibody and paraneoplastic panel are still pending. -CT angiogram head/neck showing 50-69% stenosis in the proximal left subclavian artery but otherwise normal intracranial arterial structures and common/ internal carotid arteries are patent. Patient without signs or symptoms of subclavian steal. Recommend outpatient followup with her PCP for possible referral to vascular surgeon. -Due to ongoing weakness, multiple ground level falls and further decrease in mobility secondary to acute L1 compression fracture patient would benefit from short term stay for daily PT/OT and speech therapy. -Outpatient CT chest pending results of antibody testing to exclude thymoma.Approval for [facility] pending. -Continue home dose Lamictal Additional problems management per Hospitalist: -L1 vertebral spine compression fracture -History of hypertension, hyperlipidemia Pain Evaluation: Adequate Pain Control GI Prophylaxis: Not indicated VTE Prophylaxis: Sub-Q Enoxaparin VTE Mechanical Devices: Intermittant Pneumatic CD Resuscitation Status: CPR: Attempt Resuscitation Dalia Delarosa DO May 19, 2017 11:22 Dalia Delarosa May 19, 2017 11:22 Negativemg/dL (NEG,TRACE) Urine Glucose (UA) Negativemg/dL (NEGATIVE) Urine Ketones Negativemg/dL (NEGATIVE) Urine Occult Blood Negative (NEGATIVE) Urine Nitrite Negative (NEGATIVE) Urine Bilirubin Negative (NEGATIVE) Urine Urobilinogen Normalmg/dL (NORMAL) Urine Leukocyte Esterase Negative (NEGATIVE) Urine RBC 0-2/hpf (0-2) Urine WBC 0-5/hpf (0-5) Urine Epithelial Cells Occasional/hpf (NONE-MOD) Urine Crystals None seen (NONE SEEN) Urine Bacteria None/hpf (NONE-FEW) Urine Hyaline Casts None/lpf (NONE) Urine Granular Casts None seen (NONE SEEN) Urine Waxy Casts None seen (NONE SEEN) Urine Red Blood Cell Casts None seen (NONE SEEN) Urine White Blood Cell Casts None seen (NONE SEEN) Urine Mucus None seen (None Seen) Urine Trichomonas None seen (NONE SEEN) Urine Yeast None (NONE SEEN) Urinalysis Comment None Urine Culture Reflexed Not indicated Hold Urine Received (Received) White Blood Count 9.4th/mm3 (3.8-10.1) 5.7th/mm3 (3.8-10.1) Red Blood Count 3.92mil/mm3 (3.90-5.20) 3.59mil/mm3 (3.90-5.20) Hemoglobin 12.9g/dL (12.0-15.6) 11.7g/dL (12.0-15.6) Hematocrit 37.6% (35.0-46.0) 34.9% (35.0-46.0) Mean Corpuscular Volume 95.9fL (81-100) 97.2fL (81-100) Mean Corpuscular Hemoglobin 32.9pg (27.0-35.0) 32.6pg (27.0-35.0) Mean Corpuscular Hemoglobin Concent 34.3% (32.0-37.0) 33.5% (32.0-37.0) Red Cell Distribution Width 12.6% (12.3-15.4) 12.6% (12.3-15.4) Platelet Count 166bil/L (150-400) 151bil/L (150-400) Neutrophils (%) (Auto) 84.2% (40-74) 72.2% (40-74) Lymphocytes (%) (Auto) 9.0% (14-46) 17.7% (14-46) Monocytes (%) (Auto) 5.1% (4-12) 7.1% (4-12) Eosinophils (%) (Auto) 1.0% (0-5) 1.9% (0-5) Basophils (%) (Auto) 0.3% (0-3) 0.9% (0-3) Sodium Level 138mEq/L (134-144) 140mEq/L (134-144) Potassium Level 4.1mEq/L (3.5-5.2) 4.0mEq/L (3.5-5.2) Chloride Level 100mEq/L (97-108) 101mEq/L (97-108) Carbon Dioxide Level 24mmol/L (18-29) 25mmol/L (18-29) Blood Urea Nitrogen 12mg/dL (8-27) 13mg/dL (8-27) Creatinine 0.65mg/dL (0.57-1.00) 0.62mg/dL (0.57-1.00) Estimat Glomerular Filtration Rate 126mL/min (>59) 133mL/min (>59) Glucose Level 99mg/dL (60-99) 107mg/dL (60-99) Calcium Level 9.9mg/dL (8.5-10.1) 9.2mg/dL (8.5-10.1) Magnesium Level 2.1mg/dL (1.6-2.6) 1.9mg/dL (1.6-2.6) Total Bilirubin 0.6mg/dL (0.0-1.2) 0.7mg/dL (0.0-1.2) Aspartate Amino Transf (AST/SGOT) 39U/L (0-50) 36U/L (0-50) Alanine Aminotransferase (ALT/SGPT) 36U/L (0-32) 30U/L (0-32) Alkaline Phosphatase 71U/L (25-165) 69U/L (25-165) Total Protein 7.4g/dL (6.4-8.4) 6.2g/dL (6.4-8.4) Albumin 4.3g/dL (3.4-5.0) 3.9g/dL (3.4-5.0) Result Diagram: 05/18/17 0548 05/18/17 0548 X-Rays, CTs and MRIs (05/17/17) X-RAY PELVIS, ONE OR TWO VIEWS IMPRESSION: 1. No acute fracture. No osseous lesion. If symptoms and/or clinical suspicion for pathology persist, further assessment with repeat, or advanced imaging (e.g. , CT, MRI, or bone scan) may be helpful for further assessment. Dictated and approved by: Ash Estrada M.D. on 05/17/2017 at 9:46 (05/17/17) X-RAY LUMBAR SPINE, 2 OR 3 VIEW IMPRESSION: 1. New moderate L1 compression fracture. 2. Multilevel degenerative disc and facet disease. Dictated and approved by: Ash Estrada M.D. on 05/17/2017 at 9:44 (05/17/17) X-RAY CHEST ONE VIEW, PORTABLE IMPRESSION: No acute cardiopulmonary abnormality Dictated and approved by: Star Wall M.D. 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 The patient's outpatient workup of multiple neurologic symptoms is ongoing. Given the rather rapid onset of her symptoms including diplopia, dysphonia, dysphagia and increasing weakness with generalized fatigue Myasthenia gravis remains a likely diagnosis. Patient admitted for observation and further evaluation of myasthenia gravis with initiation of an empiric trial of Mestinon. She is tolerating the Mestinon and dysphonia as well as dysarthria appears to have improved somewhat. Recommendations: -Increase Mestinon (pyridostigmine) to 60mg TID with gradual titration based on symptomatic response. -Myasthenia gravis antibody and paraneoplastic panel are still pending. -Continue close observation for possible neurologic worsening or respiratory distress. -CT angiogram head/neck to further evaluate nonspecific abnormalities on recent MR angiogram planned for this morning. -Physical therapy/Speech therapy; patient will likely need short term stay in alf facility due to ongoing weakness, multiple ground level falls and further decrease in mobility secondary to acute L1 compression fracture. -Outpatient CT chest pending results of antibody testing to exclude thymoma. -Continue home dose Lamictal Additional problems management per Hospitalist: -L1 vertebral spine compression fracture -History of hypertension, hyperlipidemia GI Prophylaxis: Not indicated VTE Prophylaxis: Sub-Q Enoxaparin VTE Mechanical Devices: Intermittant Pneumatic CD Resuscitation Status: CPR: Attempt Resuscitation Dalia Delarosa DO May 19, 2017 11:22
--- NOTE | 2017-05-19 14:20 | PCM.DIMED ---
Discharge Instructions Date of Service May 19, 2017 Dates of Hospitalization May 17, 2017 at 10:47 Discharge Diagnosis Discharge Diagnosis Myasthenia Gravis with L1 Compression Fracture Diet Discharge Diet: Heart Healthy Activity Discharge Activity: No restrictions, Other (The patient is to receive daily PT. ) Call your provider Call your provider for: Fever or Chills, Shortness of breath, Bleeding, Chest pain, Vomitting, Excessive diarrhea, Weakness (unilateral) Patient Instructions Follow-up Provider: Bhavana Hardin Follow-up with PCP in: 1 week Provider: Saurabh Irizarry MD Follow-up in: 1 week Skip Dumont MD May 19, 2017 14:20
[2017-05-19] MEDS ORDERED: ENOX40DI8 SUBQ (14:25)
[2017-05-19] MEDS ORDERED: POLY17PO6 PO (14:25)
[2017-05-19] MEDS ORDERED: PYRI60TA2 PO (14:25)
[2017-05-19] MEDS ORDERED: Acetaminophen PO (14:25)
[2017-05-19 15:23] VITALS: BP 145/84; PULSE 59; RESP 16; O2SAT 98
--- NOTE | 2017-05-19 15:48 | NUR ---
Faxed orders to [facility] and placed copy on chart, and Radha from [facility] arranged wheelchair van for pick and shovel man between 1630&1700 Updated RESIDENTIAL GREEN BUILDING DESIGNER, RN and manager merchandising
--- NOTE | 2017-05-19 16:20 | NUR ---
Social Work: Discharge D: EMR reviewed. Pt is on day 2 of hospitalization. Ore Grader confirmed that [place] has authorized pt's stay at [facility] with Dr. Kimball to accept. Pt discussed in rounds and MD stated that pt is medically cleared for discharge to a SNF for rehabilitation. Per PT, pt can transport to SNF via cabulance. LESLI scheduled transport with [facility] between [id number]. LESLI updated projects manager and pt's RN. Pt updated and agreeable. A: Pt for whom a SNF via cabulance has been deemed medically necessary P: Pt to discharge to [facility] today via cabulance between 1630 and 1700. All updated and agreeable to plan. WINSTON Caceres
--- NOTE | 2017-05-19 18:08 | NUR ---
DC. Pt iv's dc'd cannula intact. Pt up to Bathroom and given Tylenol before DC. Pt Transfer via cabulance at approx 1700. Report called to facility [facility] at 1700.
--- NOTE | 2017-05-20 00:30 | PCM.DC.MED ---
Discharge Summary Date of Service May 19, 2017 Dates of Hospitalization Date of Hospital Admission May 17, 2017 at 10:47 Date of Discharge: May 19, 2017 Providers: Admitting Physician: Skip Dumont MD Primary Care Physician: Bhavana Hardin Attending Physician: Skip Dumont MD Diagnosis at Time of Discharge Diagnosis at Time of Discharge Myasthenia Gravis with L1 Compression Fracture Consultations Dr. Irizarry of neurology Procedures XRay, CTs & MRIs (05/17/17) X-RAY PELVIS, ONE OR TWO VIEWS IMPRESSION: 1. No acute fracture. No osseous lesion. If symptoms and/or clinical suspicion for pathology persist, further assessment with repeat, or advanced imaging (e.g. , CT, MRI, or bone scan) may be helpful for further assessment. Dictated and approved by: Ash Estrada M.D. on 05/17/2017 at 9:46 (05/17/17) X-RAY LUMBAR SPINE, 2 OR 3 VIEW IMPRESSION: 1. New moderate L1 compression fracture. 2. Multilevel degenerative disc and facet disease. Dictated and approved by: Ash Estrada M.D. on 05/17/2017 at 9:44 (05/17/17) X-RAY CHEST ONE VIEW, PORTABLE IMPRESSION: No acute cardiopulmonary abnormality Dictated and approved by: Star Wall M.D. on 05/17/2017 at 15:15 (05/18/17) CT ANGIO HEAD AND NECK (P) IMPRESSION: 1. 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 Please correlate for any clinical evidence of subclavian steal syndrome. 2. 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 The sequelae of previous dissection is less likely but possible. The left vertebral artery is enlarged and widely patent. 3. Common and internal carotid arteries are patent. 4. Normal intracranial arterial structures. Dictated and approved by: Jose A Nunez M.D. on 05/18/2017 at 14:29 . Cardiac Echo Impression Echocardiogram Report: Interpretation Summary 1) Normal left ventricular thickness, size, wall motion, and systolic function (EF 65-70%). 2) Grossly, mildly dilated right ventricle with normal function. 3) Dilated right atrium but unable to grade due to suboptimal images of right atrium. 4) Mild to moderate tricuspid regurgitation. 5) Compared to the Echo done 03/10/2015, no significant change. . 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 She states that it typically takes her awhile to get going in the morning and she was in her bedroom when she fell backwards onto her bottom around 7am. She denies feeling lightheaded or dizzy and states that she was a little off balance. She reports landing on her tailbone after which she states she immediately felt pain in her low back that radiated up her spine. Her back pain is worse with movement, particularly sitting up in bed and relieved when lying flat. She states that she was able to roll onto her side after and ambulate with a walker to call 911. She denies loss of consciousness, dizziness, headache , loss of bladder or bowel function, numbness or tingling in her extremities, shortness of breath, chest pain or palpitations. She reports increasing difficulty swallowing, slurred speech, generalized fatigue, and weakness in her right leg as well as bilateral upper extremities. Of note, she was scheduled for an office visit at the Neurology clinic today at 11am to discuss recent imaging studies and workup for myasthenia gravis. She was seen by Neurology on for peroneal neuropathy and new onset of intermittent dysarthria and dysphagia with occasional choking episodes. At that time she denied ocular symptoms commonly seen in the setting of myasthenia such as ptosis and diploplia. However, states that she was told in December that she does not have vertigo after an evaluation at [facility] and her symptoms attributed to diplopia. She denies recent changes in vision but notes that she has been seeing double for quite some time and that this worsens when she is tired. She reports ongoing gait disturbance related to her right foot, increasing fatigue throughout the day and that her leg feels heavy at times. A nerve conduction study on 02/14/17 was consistent with right-sided common peroneal mononeuropathy at the fibular neck. However, this showed evidence of remyelination and was improved from prior study just three months earlier. A brain MRI on on 04/18/17 to rule out the possibility of stroke showed no acute process, mild volume loss and small vessel ischemic disease, no recent infarct. Hospital Course General: Patient is again comfortable lying supine in bed, however sitting or standing causes pain in her lower back. Patient was able to walk around the room today with physical therapy. HEENT: Head is atraumatic and normocephalic. Eyes: Pupils are equally round and reactive to light and accommodation. Extraocular muscles are intact. Sclera are white, anicteric. Subconjunctival mucosa is pink. Ears and nose are unremarkable. Oropharynx: There is no mucosal lesions, there is no thrush, there is no pharyngitis. Neck: Is supple, there are no nodes, or masses or tenderness. Chest: Is clear to auscultation and percussion. There are no rales, rhonchi, wheezes or rubs. Heart: Rate, rhythm is regular. There is a grade 2/6 systolic ejection murmur heard best at the left sternal border. There is no rub or gallop. Abdomen: Good bowel sounds are present. Abdomen is soft, nontender, no organomegaly or masses were appreciated. Extremities: Are well perfused. There is no edema, there is no cellulitis, no rash. There is foot drop on the right and possibly some early atrophy of muscles in the right lower extremity apparent in the knee to below knee area. Neurologic: The patient has garbled speech and difficulty swallowing. She complains of double vision in her left eye. She has generalized weakness. She has right lower extremities foot drop. Possible atrophy of his muscles of her right lower extremity. Otherwise she has generalized weakness. Gait was not tested at this time. Finger to nose and heel to mcnally test were unremarkable. There was no dysmetria. Psychiatric: Patients mood is calm and she shows no sign of agitation. Genital: Deferred Rectal: Deferred Exam Vital Signs (Last) Date Time Temp Pulse Resp B/P Pulse Ox O2 Delivery O2 Flow Rate FiO2 05/19/17 15:23 36.7 59 16 145/84 98 Room Air Exam General: Patient is again comfortable lying supine in bed, however sitting or standing causes pain in her lower back. Patient was able to walk around the room today with physical therapy. HEENT: Head is atraumatic and normocephalic. Eyes: Pupils are equally round and reactive to light and accommodation. Extraocular muscles are intact. Sclera are white, anicteric. Subconjunctival mucosa is pink. Ears and nose are unremarkable. Oropharynx: There is no mucosal lesions, there is no thrush, there is no pharyngitis. Neck: Is supple, there are no nodes, or masses or tenderness. Chest: Is clear to auscultation and percussion. There are no rales, rhonchi, wheezes or rubs. Heart: Rate, rhythm is regular. There is a grade 2/6 systolic ejection murmur heard best at the left sternal border. There is no rub or gallop. Abdomen: Good bowel sounds are present. Abdomen is soft, nontender, no organomegaly or masses were appreciated. Extremities: Are well perfused. There is no edema, there is no cellulitis, no rash. There is foot drop on the right and possibly some early atrophy of muscles in the right lower extremity apparent in the knee to below knee area. Neurologic: The patient has garbled speech and difficulty swallowing. She complains of double vision in her left eye. She has generalized weakness. She has right lower extremities foot drop. Possible atrophy of his muscles of her right lower extremity. Otherwise she has generalized weakness. Gait was not tested at this time. Finger to nose and heel to mcnally test were unremarkable. There was no dysmetria. Psychiatric: Patients mood is calm and she shows no sign of agitation. Genital: Deferred Rectal: Deferred Test 05/17/17 08:48 05/17/17 10:25 05/18/17 05:48 05/19/17 06:05 Urine Color Yellow (YELLOW) Urine Appearance Hazy (CLEAR,HAZY) Urine pH 6.5 (5.0-8.0) Urine Specific [place] 1.010 (1.003-1.035) Urine Protein Negativemg/dL (NEG,TRACE) Urine Glucose (UA) Negativemg/dL (NEGATIVE) Urine Ketones Negativemg/dL (NEGATIVE) Urine Occult Blood Negative (NEGATIVE) Urine Nitrite Negative (NEGATIVE) Urine Bilirubin Negative (NEGATIVE) Urine Urobilinogen Normalmg/dL (NORMAL) Urine Leukocyte Esterase Negative (NEGATIVE) Urine RBC 0-2/hpf (0-2) Urine WBC 0-5/hpf (0-5) Urine Epithelial Cells Occasional/hpf (NONE-MOD) Urine Crystals None seen (NONE SEEN) Urine Bacteria None/hpf (NONE-FEW) Urine Hyaline Casts None/lpf (NONE) Urine Granular Casts None seen (NONE SEEN) Urine Waxy Casts None seen (NONE SEEN) Urine Red Blood Cell Casts None seen (NONE SEEN) Urine White Blood Cell Casts None seen (NONE SEEN) Urine Mucus None seen (None Seen) Urine Trichomonas None seen (NONE SEEN) Urine Yeast None (NONE SEEN) Urinalysis Comment None Urine Culture Reflexed Not indicated Hold Urine Received (Received) White Blood Count 5.7th/mm3 (3.8-10.1) Red Blood Count 3.59mil/mm3 (3.90-5.20) Hemoglobin 11.7g/dL (12.0-15.6) Hematocrit 34.9% (35.0-46.0) Mean Corpuscular Volume 97.2fL (81-100) Mean Corpuscular Hemoglobin 32.6pg (27.0-35.0) Mean Corpuscular Hemoglobin Concent 33.5% (32.0-37.0) Red Cell Distribution Width 12.6% (12.3-15.4) Platelet Count 151bil/L (150-400) Neutrophils (%) (Auto) 72.2% (40-74) Lymphocytes (%) (Auto) 17.7% (14-46) Monocytes (%) (Auto) 7.1% (4-12) Eosinophils (%) (Auto) 1.9% (0-5) Basophils (%) (Auto) 0.9% (0-3) Total Bilirubin 0.7mg/dL (0.0-1.2) Aspartate Amino Transf (AST/SGOT) 36U/L (0-50) Alanine Aminotransferase (ALT/SGPT) 30U/L (0-32) Alkaline Phosphatase 69U/L (25-165) Total Protein 6.2g/dL (6.4-8.4) Albumin 3.9g/dL (3.4-5.0) Sodium Level 139mEq/L (134-144) Potassium Level 4.5mEq/L (3.5-5.2) Chloride Level 103mEq/L (97-108) Carbon Dioxide Level 24mmol/L (18-29) Blood Urea Nitrogen 11mg/dL (8-27) Creatinine 0.63mg/dL (0.57-1.00) Estimat Glomerular Filtration Rate 131mL/min (>59) Glucose Level 104mg/dL (60-99) Calcium Level 9.3mg/dL (8.5-10.1) Magnesium Level 1.9mg/dL (1.6-2.6) Discharge Medications Discharge Medications Brimonidine Tartrate (Alphagan P) 5 Ml Drops 1-2 DROP AFFECT_EYE BID (Reported) Enoxaparin Sodium (Enoxaparin Sodium) 40 Mg/0.4 Ml Syringe 30 MG SUBQ DAILY Prescribed by: BRODY DUMONT MD Lamotrigine (Lamictal) 25 Mg Tablet 50 MG PO BID (Reported) Pyridostigmine [place] (Mestinon) 60 Mg Tablet 60 MG PO TID Prescribed by: BRODY DUMONT MD As needed ([Acetaminophen]) 325 MG TABLET 650 MG PO Q4H PRN PRN For Pain Prescribed by: BRODY DUMONT MD Polyethylene Glycol 3350 (Miralax) 17 Gm Powd.pack 17 GM PO DAILY PRN PRN For Constipation Prescribed by: BRODY DUMONT MD Followup Plan Disposition: The patient is being discharged to [facility]. Discharge Diet: Heart Healthy Discharge Activity: No restrictions, Other (The patient is to receive daily PT. ) Follow-up Provider: Bhavana Hardin Follow-up with PCP in: 1 week Provider: Saurabh Irizarry MD Follow-up in: 1 week Time spent Time spent on discharging this patient was greater than 35 minutes, over half of which was involved in counseling and coordination of care. Skip Dumont MD May 20, 2017 00:29
== END 2017-05-19 17:00 ==
LOC: SED 08:26 → OSC 10:47
PROVIDERS: ADMIT Internal Medicine Infectious Disease; ATTEND Internal Medicine Infectious Disease
DX: G70.00 Myasthenia gravis without (acute) exacerbation (principal); S32.018A Other fracture of first lumbar vertebra, initial encounter for closed fracture; I10 Essential (primary) hypertension; G40.909 Epilepsy, unspecified, not intractable, without status epilepticus; M21.371 Foot drop, right foot; R13.10 Dysphagia, unspecified; R47.1 Dysarthria and anarthria; W18.39XA Other fall on same level, initial encounter; Y93.89 Activity, other specified; Y92.019 Unspecified place in single-family (private) house as the place of occurrence of the external cause; Y99.8 Other external cause status; Z88.0 Allergy status to penicillin
CPT/HCPCS: 36415; 70496; 70498; 71010; 72100; 72170; 80048; 80053; 81000; 83519; 83520; 83735; 85025; 86255; 86256; 92522; 92526; 92610; 93005; 94150; 96360; 97162; 99285; C8929; G8996; G8997; J1650; J7030; Q9967